=== PATIENT | female | born 1985 | race Caucasian/White ===

== ENCOUNTER 2018-01-16 17:37 | Emergency (ER) | payer BC ==
[2018-01-16 18:12] VITALS: BP 119/85
--- NOTE | 2018-01-16 19:03 | UC ---
UC General HPI - HPI Summary HPI Summary: 32 y/o female presents to the urgent care c/o mild anterior neck swollen glands , fatigue, YE,joint pains, Nausea and neck pain for the past week. Pt states she had Hx of tick bites about 2 months ago and last year, but she doesn't think they were engorged and she has never seen a rash. Since [place] this [place] she requests a Lyme serology to make sure she doesn't have it. Pt has not taking anything to alleviate symptoms. YE and joint pains is mild 2/10, but she sometimes has Migraine YE. Pt denies fever, cough, nasal congestion, SOB , chest pain, abdominal pain, N/V/D, unintended weight loss, FMHx of cancer. Hx of STD's or recent travel outside the country. LMP: 12/20/2017 w/ regular menstrual cycles. - History of Current Complaint Chief Complaint: UCGeneralIllness Stated Complaint: POSS LYME,FATIGUE,NECK PAIN Time Seen by Provider: 01/16/18 18:32 Hx Last Menstrual Period: 12/20/17 Onset/Duration: Gradual Onset, Lasting Weeks - 1 week, Still Present Timing: Constant Onset Severity: Mild Current Severity: Mild Pain Intensity: 2 Associated Signs & Symptoms: Positive: Headache, Nausea, Weakness. Negative: Abdominal Pain, Back Pain, Cough, Dizziness, Diarrhea, Dysuria, Fever, Palpitations, SOB, Vomiting - Allergy/Home Medications Allergies/Adverse Reactions: Allergies Allergy/AdvReac Type Severity Reaction Status Date / Time No Known Allergies Allergy Verified 01/16/18 18:11 PMH/Surg Hx/FS Hx/Imm Hx Previously Healthy: Yes - Pt denies PMHX - Surgical History Surgical History: None - Family History Known Family History: Positive: None - Pt denies FMHX - Social History Occupation: Employed Full-time Lives: With Family Alcohol Use: Occasionally Substance Use Type: None Smoking Status (MU): Never Smoked Tobacco Review of Systems Constitutional: Fatigue Skin: Negative Eyes: Negative ENT: Negative Respiratory: Negative Cardiovascular: Negative Gastrointestinal: Nausea Genitourinary: Negative Motor: Weakness Neurovascular: Negative Musculoskeletal: Arthralgia Neurological: Headache Psychological: Negative Is Patient Immunocompromised?: No All Other Systems Reviewed And Are Negative: Yes Physical Exam - Summary Physical Exam Summary: VITAL SIGNS: Reviewed. GENERAL: Patient is a well developed and nourished female who is sitting comfortable in the examining table. Patient is not in any acute respiratory distress. HEAD AND FACE: No signs of trauma. No ecchymosis, hematomas or skull depressions. No sinus tenderness. EYES: PERRLA, EOMI x 2, No injected conjunctiva, no nystagmus. No photophobia. EARS: Hearing grossly intact. Ear canals and tympanic membranes are within normal limits. Nose: edematous and erythematous nasal mucosa w/ clear nasal discharge. MOUTH: Positive no erythema, no tonsillar enlargement. Uvula in midline. NECK: Supple, trachea is midline, Positive anterior cervical lymphadenopathy, no JVD, no carotid bruit, no c-spine tenderness, neck with full ROM. No meningeal signs, no Kernig's or brudzinskis signs. CHEST: Symmetric, no tenderness at palpation LUNGS: Clear to auscultation bilaterally. No wheezing or crackles. CVS: Regular rate and rhythm, S1 and S2 present, no murmurs or gallops appreciated. ABDOMEN: Soft, non-tender. No signs of distention. No rebound no guarding, and no masses palpated. Bowel sounds are normal. EXTREMITIES: FROM in all major joints, no edema, no cyanosis or clubbing. NEURO: Alert and oriented x 3. No acute neurological deficits. Speech is normal and follows commands. Triage Information Reviewed: Yes Vital Signs: Initial Vital Signs Temp 98.7 F 01/16/18 18:07 Pulse 78 01/16/18 18:07 Resp 18 01/16/18 18:07 BP 119/85 01/16/18 18:07 Pulse Ox 100 01/16/18 18:07 Course/Dx - Course Course Of Treatment: 32 y/o female presents to the urgent care c/o mild anterior neck swollen glands, fatigue, YE,joint pains, Nausea and neck pain for the past week. Pt states she had Hx of tick bites about 2 months ago and last year, but she doesn't think they were engorged and she has never seen a rash. Since she lives in this endemic area she requests a Lyme serology to make sure she doesn't have it. Pt has not taking anything to alleviate symptoms. YE and joint pains is mild 2/10, but she sometimes has Migraine YE. Pt denies fever, cough, nasal congestion, SOB, chest pain, abdominal pain, N/V/D, unintended weight loss, FMHx of cancer. Hx of STD's or recent travel outside the country. LMP: 12/20/2017 w/ regular menstrual cycles. Hx obtained. PE: positive anterior cervical lympadenopathy on examination. Symptoms maybe do to a viral syndrome, however due to Pt's concern. Lyme serology ordered. Pt will be notified of result. Strongly advised to f/u w/ PCP if serology is negative for further blood work and management of her fatigue.Avised to increase fluid intake, rest and avoid strenuous activities. D/C instructions explained.Pt understood and agreed w/ plan of care. - Differential Dx - Multi-Symptom Differential Diagnoses: Other - pharyngitis, tonsillitis,lyme, URI, otitis, bronchitis, pmeunonia. Provider Diagnoses: 1- Anterior cervical lympadenopathy. 2-r/o Lyme disease. 3 -fatigue Discharge - Sign-Out/Discharge Documenting (check all that apply): Patient Departure - Discharge Plan Condition: Stable Disposition: HOME Prescriptions: Ibuprofen TAB* [Motrin TAB* 600 MG] 600 mg PO Q6H PRN #30 tab PRN Reason: Pain Patient Education Materials: Lyme Disease (ED), Lymphadenopathy (ED) Referrals: [facility] [place] [facility] REFERRAL [Outside] - 3 Days Additional Instructions: 1- Lyme Serology was sent to lab. You will be notified of results. Please F/u with DR Jiménez if Lyme serology is positive for further management. 2-Please f/u w/ your PCP in 3 days for further work up for your symptoms . 3-Take Ibuprofen PO q6-8hrs after meals to alleviate pain, YE and swelling. Per institutional requirements, I have reviewed the chart, however, I was not consulted specifically or made aware of this patient by the above midlevel provider. I did not personally evaluate, interact with , or disposition this patient. - Billing Disposition and Condition Condition: STABLE Disposition: Home
--- NOTE | 2018-01-18 16:35 | PN ---
Progress Note - Progress Note Date of Service: 01/18/18 Note: patient lyme serology came back negative. please inform patients.
== END 2018-01-16 19:24 | disposition home or self-care (01) ==
LOC: UCEAST 17:37
DX: R59.0 Localized enlarged lymph nodes (principal); R53.83 Other fatigue; R51 Headache; R11.0 Nausea; M54.2 Cervicalgia
CPT/HCPCS: 86618; 99212; G0463